=== PATIENT | female | born 1930 | race Caucasian/White ===

== ENCOUNTER 2017-07-30 20:12 | Emergency (ER) | payer MEDICARE ==
[~2017-07-30] VITALS: Ht 160 cm; Wt 51.3 kg
[~2017-07-30 20:12] MED LIST: ASCO500 PO; ASPI81CH; Aspirin EC325 MG PO; BETA.05TC TOP; BUME2 PO; CALCAVITD PO; CALCNI; CARV25 PO; CETI10 PO; CHOL10002 PO; CIPR250 PO; CLOB.05TC TOP; CLOP75 PO; CONEST.625; CONEST1.25; DICMIS50EC; DILT180; FAMO20 PO; FURO20 PO; FURO40 PO; GLUC500 PO; HYDACE5 PO; HYDHCL25 PO; HYDPAM25 PO; LEVFLO500; LEVFLO500 PO; LISI20; LISI20 PO; LORA10ER; LOSA50 PO; MELO7.5 PO; MIACALCIN; MOTION RELIEF25 MG PO; MYRBETRIQ50 MG PO; Macrobid 100 M100 MG PO; Multivitamin1 EAC1 PO; NEBI10 PO; NIFE10 PO; OMEP20ER; OXYB5 PO; POTA10T PO; PSYL5.85P PO; TELM80 PO; TOCO1000 PO; TOLT2ER; TOLT4 PO; TRIM100 PO; VIT1CAPS12 PO; [UNRECOGNIZED DRUG - REMARK]; [UNRECOGNIZED DRUG - REMARK]
[2017-07-30 21:06] LABS: BASOPHILS ABSOLUTE AUTO 0.07 K/mm3 (0.00-0.23); BASOPHILS PERCENT AUTO 1 % (0-2); EOSINOPHILS ABSOLUTE AUTO 0.31 K/mm3 (0.00-0.68); EOSINOPHILS PERCENT AUTO 3 % (0-6); Hematocrit 33.1 % (33.0-51.0); Hemoglobin 11.2 g/dL (11.5-16.0); IMMATURE GRAN ABSOLUTE AUTO 0.04 K/mm3 (0.00-0.10); IMMATURE GRAN PERCENT AUTO 0 % (0-1); LYMPHOCYTES ABSOLUTE AUTO 2.47 K/mm3 (0.84-5.20); LYMPHOCYTES PERCENT AUTO 22 % (21-46); MONOCYTES ABSOLUTE AUTO 0.96 K/mm3 (0.16-1.47); MONOCYTES PERCENT AUTO 8 % (4-13); Mean Corpuscular HGB 31.9 pg (26.0-34.0); Mean Corpuscular HGB Conc 33.8 g/dL (31.5-36.5); Mean Corpuscular Volume 94 fL (80-100); NEUTROPHILS ABSOLUTE AUTO 7.56 K/mm3 (1.96-9.15); NEUTROPHILS PERCENT AUTO 66 % (41-73); Platelet Count 339 K/mm3 (150-400); RDW Coefficient Variation 13.1 % (11.7-14.2); RDW Standard Deviation 44.9 fL (35.1-46.3); Red Blood Cell Count 3.51 M/mm3 (3.80-5.20); White Blood Cell Count 11.41 K/mm3 (4.00-11.30)
[2017-07-30 21:21] LABS: Albumin, Blood 3.1 g/dL (3.4-5.0); Albumin/Globulin Ratio 0.9 (0.8-1.8); Bilirubin, Total 0.3 mg/dL (0.1-1.0); Bun/Creatinine Ratio 21.1 (12.0-20.0); Calcium, Blood 9.2 mg/dL (8.5-10.1); Creatinine, Blood 1.23 mg/dL (0.40-1.00); Globulin, Blood 3.5 g/dL (2.2-4.0); Potassium, Blood 4.5 mmol/L (3.5-5.5); Total Protein, Blood 6.6 g/dL (6.4-8.2)
[2017-07-30 22:46] LABS: Source, Urine Clean Catch
[2017-07-30 22:51] LABS: Bilirubin, Urine Neg (Neg); Blood, Urine Neg (Neg); Glucose Qualitative, Urine Neg (Neg); Ketones, Urine Neg (Neg); Leukocyte Esterase, Urine 1+ (Neg); Nitrite, Urine Neg (Neg); Protein, Urine 1+ (Neg); Urobilinogen, Urine NORM (Normal)
[2017-07-30 23:03] LABS: Appearance, Urine Clear (Clear); Color, Urine Yellow (P-Yellow)
[2017-07-30 23:04] LABS: Amorphous Light (0-Heavy); Bacteria Few /hpf; Red Blood Cells, Urine Not Seen /hpf (0-2); Squamous Epithelial Cells Few /hpf (Few); White Blood Cells, Urine 0-2 /hpf (0-5)
[2017-07-31] MEDS ORDERED: ONDA4ODT MM (02:10)
== END 2017-07-31 02:36 | disposition home or self-care (01) ==
LOC: ER 20:12
PROVIDERS: Emergency Medicine
DX: R10.9 Unspecified abdominal pain (principal); R11.2 Nausea with vomiting, unspecified; R30.0 Dysuria; D72.829 Elevated white blood cell count, unspecified; I10 Essential (primary) hypertension; Z88.2 Allergy status to sulfonamides; Z88.8 Allergy status to other drugs, medicaments and biological substances; Z79.899 Other long term (current) drug therapy; Z79.82 Long term (current) use of aspirin; Z87.891 Personal history of nicotine dependence
CPT/HCPCS: 36415; 51798; 74176; 80053; 81001; 83690; 85025; 87077; 87086; 87186; 93005; 93010; 96361; 96374; 96376; 99284; J2405; J7030

== ENCOUNTER 2017-08-06 23:51 | Emergency (ER) | payer MEDICARE ==
[~2017-08-06] VITALS: Ht 160 cm; Wt 53.5 kg
[~2017-08-06 23:51] MED LIST changes: -ASPI81CH; +ASPI81CH PO; -CONEST.625; +CONEST.625 PO; +Metamucil Smooth1 EA PO; +ONDA4ODT MM
[2017-08-07 00:29] LABS: Source, Urine Catheter
[2017-08-07 00:31] LABS: Bilirubin, Urine Neg (Neg); Blood, Urine Neg (Neg); Glucose Qualitative, Urine Neg (Neg); Ketones, Urine Neg (Neg); Leukocyte Esterase, Urine Neg (Neg); Nitrite, Urine Neg (Neg); Protein, Urine Neg (Neg); Specific Gravity, Urine 1.015 (1.003-1.022); Urobilinogen, Urine NORM (Normal)
[2017-08-07 00:34] LABS: BASOPHILS ABSOLUTE AUTO 0.05 K/mm3 (0.00-0.23); BASOPHILS PERCENT AUTO 0 % (0-2); EOSINOPHILS ABSOLUTE AUTO 0.38 K/mm3 (0.00-0.68); EOSINOPHILS PERCENT AUTO 3 % (0-6); Hematocrit 30.4 % (33.0-51.0); Hemoglobin 10.1 g/dL (11.5-16.0); IMMATURE GRAN ABSOLUTE AUTO 0.04 K/mm3 (0.00-0.10); IMMATURE GRAN PERCENT AUTO 0 % (0-1); LYMPHOCYTES ABSOLUTE AUTO 1.72 K/mm3 (0.84-5.20); LYMPHOCYTES PERCENT AUTO 15 % (21-46); MONOCYTES ABSOLUTE AUTO 0.85 K/mm3 (0.16-1.47); MONOCYTES PERCENT AUTO 8 % (4-13); Mean Corpuscular HGB 31.7 pg (26.0-34.0); Mean Corpuscular HGB Conc 33.2 g/dL (31.5-36.5); Mean Corpuscular Volume 95 fL (80-100); Mean Platelet Volume 9.8 fL (9.1-12.4); NEUTROPHILS ABSOLUTE AUTO 8.11 K/mm3 (1.96-9.15); NEUTROPHILS PERCENT AUTO 73 % (41-73); Platelet Count 268 K/mm3 (150-400); RDW Coefficient Variation 12.9 % (11.7-14.2); RDW Standard Deviation 44.9 fL (35.1-46.3); Red Blood Cell Count 3.19 M/mm3 (3.80-5.20); White Blood Cell Count 11.15 K/mm3 (4.00-11.30)
[2017-08-07 00:36] LABS: Appearance, Urine Clear (Clear); Color, Urine Yellow (P-Yellow)
[2017-08-07 00:52] LABS: Albumin, Blood 2.9 g/dL (3.4-5.0); Albumin/Globulin Ratio 0.9 (0.8-1.8); Bilirubin, Total 0.3 mg/dL (0.1-1.0); Bun/Creatinine Ratio 20.2 (12.0-20.0); Calcium, Blood 8.7 mg/dL (8.5-10.1); Creatinine, Blood 1.09 mg/dL (0.40-1.00); Globulin, Blood 3.1 g/dL (2.2-4.0)
[2017-08-07] MEDS ORDERED: Flomax0.4 MG PO (02:20)
== END 2017-08-07 03:00 | disposition home or self-care (01) ==
LOC: ER 23:51
PROVIDERS: Emergency Medicine
DX: R33.9 Retention of urine, unspecified (principal); R10.11 Right upper quadrant pain; Z88.2 Allergy status to sulfonamides; Z88.8 Allergy status to other drugs, medicaments and biological substances; Z79.899 Other long term (current) drug therapy; Z79.82 Long term (current) use of aspirin; I10 Essential (primary) hypertension; Z87.891 Personal history of nicotine dependence
CPT/HCPCS: 36415; 51701; 76705; 80053; 81003; 83605; 83690; 83735; 85025; 99284

== ENCOUNTER 2017-08-09 16:39 | Emergency (ER) | payer MEDICARE ==
[~2017-08-09] VITALS: Ht 160 cm; Wt 51.3 kg
[~2017-08-09 16:39] MED LIST changes: +Flomax0.4 MG PO
[2017-08-09 19:01] LABS: Source, Urine Catheter
[2017-08-09 19:04] LABS: Appearance, Urine Clear (Clear); Bilirubin, Urine Neg (Neg); Blood, Urine Neg (Neg); Color, Urine Yellow (P-Yellow); Glucose Qualitative, Urine Neg (Neg); Ketones, Urine Neg (Neg); Leukocyte Esterase, Urine Neg (Neg); Nitrite, Urine Neg (Neg); Protein, Urine Neg (Neg); Urobilinogen, Urine NORM (Normal)
== END 2017-08-09 19:49 | disposition home or self-care (01) ==
LOC: ER 16:39
PROVIDERS: Emergency Medicine
DX: R33.9 Retention of urine, unspecified (principal); I10 Essential (primary) hypertension; F03.90 Unspecified dementia, unspecified severity, without behavioral disturbance, psychotic disturbance, mood disturbance, and anxiety; Z88.2 Allergy status to sulfonamides; Z88.8 Allergy status to other drugs, medicaments and biological substances; Z79.899 Other long term (current) drug therapy; Z79.82 Long term (current) use of aspirin; Z87.891 Personal history of nicotine dependence
CPT/HCPCS: 51702; 51798; 81003; 99283

== ENCOUNTER → 2018-03-06 | Outpatient (CLI) | payer MEDICARE ==
[~2018-03-06] MED LIST changes: -LISI20
== END | disposition home or self-care (01) ==
LOC: LAB SHORT 12:23 → LAB EV 12:23
DX: E86.0 Dehydration (principal)
CPT/HCPCS: 87086

== ENCOUNTER → 2018-03-06 | Outpatient (CLI) | payer MEDICARE ==
[2018-03-06 11:16] LABS: BASOPHILS ABSOLUTE AUTO 0.04 K/mm3 (0.00-0.23); BASOPHILS PERCENT AUTO 0 % (0-2); EOSINOPHILS ABSOLUTE AUTO 0.02 K/mm3 (0.00-0.68); EOSINOPHILS PERCENT AUTO 0 % (0-6); Hematocrit 37.2 % (33.0-51.0); Hemoglobin 12.5 g/dL (11.5-16.0); IMMATURE GRAN ABSOLUTE AUTO 0.05 K/mm3 (0.00-0.10); IMMATURE GRAN PERCENT AUTO 0 % (0-1); LYMPHOCYTES ABSOLUTE AUTO 1.34 K/mm3 (0.84-5.20); LYMPHOCYTES PERCENT AUTO 9 % (21-46); MONOCYTES ABSOLUTE AUTO 0.35 K/mm3 (0.16-1.47); MONOCYTES PERCENT AUTO 2 % (4-13); Mean Corpuscular HGB 32.1 pg (26.0-34.0); Mean Corpuscular HGB Conc 33.6 g/dL (31.5-36.5); Mean Corpuscular Volume 95 fL (80-100); Mean Platelet Volume 10.9 fL (9.1-12.4); NEUTROPHILS PERCENT AUTO 88 % (41-73); Platelet Count 347 K/mm3 (150-400); RDW Standard Deviation 44.8 fL (35.1-46.3)
[2018-03-06 11:28] LABS: Albumin, Blood 3.6 g/dL (3.4-5.0); Bilirubin, Total 0.4 mg/dL (0.1-1.0); Bun/Creatinine Ratio 22.7 (12.0-20.0); Calcium, Blood 10.4 mg/dL (8.5-10.1); Creatinine, Blood 1.28 mg/dL (0.40-1.00); Globulin, Blood 3.7 g/dL (2.2-4.0); Potassium, Blood 4.7 mmol/L (3.5-5.5); Total Protein, Blood 7.3 g/dL (6.4-8.2)
== END | disposition home or self-care (01) ==
LOC: LAB SHORT 11:12 → LAB EV 11:12
PROVIDERS: General Practice
DX: R11.10 Vomiting, unspecified (principal)
CPT/HCPCS: 80053; 83690; 85025

== ENCOUNTER 2018-04-19 14:01 | Inpatient (IN) | payer MEDICARE ==
[~2018-04-19] VITALS: Ht 162.6 cm; Wt 58.3 kg
[2018-04-19 15:12] LABS: Source, Urine Catheter
[2018-04-19 15:22] LABS: Bilirubin, Urine Neg (Neg); Blood, Urine Neg (Neg); Glucose Qualitative, Urine Neg (Neg); Ketones, Urine Neg (Neg); Leukocyte Esterase, Urine Neg (Neg); Nitrite, Urine Neg (Neg); Protein, Urine Neg (Neg); Specific Gravity, Urine 1.015 (1.003-1.022); Urobilinogen, Urine NORM (Normal); pH, Urine 6.5 (5.0-8.0)
[2018-04-19 15:33] LABS: Appearance, Urine Clear (Clear); Color, Urine Yellow (P-Yellow)
[2018-04-19] MEDS ORDERED: MIACALCIN (17:40)
--- NOTE | 2018-04-19 18:44 | NUR ---
PT ADMITTED THIS SYLVAIN. ADMIT DONE EXCEPT FOR HISTORY. PT SOMEWHAT ANXIOUS. DEMENTIA. DAUGHTER HAS BEEN IN ROOM UNTIL RECENTLY. NPO FOR SBO. LUNGS CLEAR, RESP EASY, UNLABORED. ON R.A. H/R REG, NO MURMER NOTED. BT X4 LAST BM REPORTED THIS AM. 100 CC EMESIS OUT AT BEDSIDE. BED ALARM ON FOR SAFETY. BED IN LOW POSITION, CALL LITE IN REACH,
--- NOTE | 2018-04-20 05:09 | NUR ---
SHIFT SUMMARY: PT IS A&O, BUT BECOMES CONFUSED WITH DETAIL. PT ALSO BECOMES VERY ANXIOUS AND APOLOGETIC, BUT IS EASY TO DE-ESCALATE WITH THERAPEUTIC COMMUNICATION. BED ALARM ON PT IS IMPULSIVE AND FORGETFUL. BLE 2+ EDEMA, PER PT'S DAUGHTER, IS BASELINE. RESP E/U ON ROOM AIR. LS CLEAR. INGUINAL HERNIA TO ABD. DENIES N/V/D. MILD DISTENTION, FIRM ABD, BS NORMO X 4. 1 PER ASSIST TO BATHROOM. NPO PER ORDERS. NO OTHER CHANGES TO REPORT, WILL CONT TO MONITOR AND PROVIDE CARE UNTIL PRESUMED BY ONCOMING RN
[2018-04-20 05:41] LABS: Bun/Creatinine Ratio 25.9 (12.0-20.0); Calcium, Blood 8.5 mg/dL (8.5-10.1); Creatinine, Blood 1.16 mg/dL (0.40-1.00); Potassium, Blood 4.2 mmol/L (3.5-5.5)
--- NOTE | 2018-04-20 10:52 | NUR ---
PATIENT DID NOT EAT BREAKFAST THIS SHIFT DUE TO BEING NPO AT THIS TIME.
--- NOTE | 2018-04-20 13:27 | NUR ---
PATIENT DID NOT EAT LUNCH THIS SHIFT DUE TO BEING NPO AT THIS TIME.
--- NOTE | 2018-04-20 16:38 | NUR ---
SHIFT SUMMARY NO ACUTE CHANGES. DR. FONG CONSULTED ON PATIENT. PATIENT PASSING SMALL STOOLS. ORDERS GIVEN TO ADVANCE DIET TO CLEAR LIQUID. FOUR NURSES ATTEMPTED TO RESTART IV ON PATIENT WITHOUT SUCCESS. ORDERS FOR NO IV ACCESS GIVEN. PATIENT TOLERATING CLEAR LIQUID WELL SO FAR. DENIES PAIN OR NAUSEA. CALL LIGHT IN REACH, WILL CONTINUE TO MONITOR.
--- NOTE | 2018-04-21 06:30 | NUR ---
SHIFT SUMMARY: PT CONT TO TOLERATE CLEAR LIQUIDS DIET. DENIES N/V/D. NO IV ACCESS PER ORDERS. PRN MIRALAX ADMINISTERED 2X / DAY. NO OTHER CHANGES TO REPORT. WILL CONT TO MONITOR AND PROVIDE CARE UNTIL PRESUMED BY ONCOMING RN.
--- NOTE | 2018-04-21 19:06 | NUR ---
PT DIET ADVANCED TO SOFT TODAY, TOLERATING WELL. PT HAD SEVERAL VERY SMALL, HARD, ROUND BM'S TODAY. JUST A PEBBLE OR TWO AT A TIME. NO ACUTE CHANGES NOTED. WILL CONTINUE TO MONITOR AND REPORT TO ONCOMING RN
[2018-04-22 05:23] LABS: Hemoglobin 10.7 g/dL (11.5-16.0); Mean Corpuscular HGB 30.7 pg (26.0-34.0); Mean Corpuscular HGB Conc 31.5 g/dL (31.5-36.5); Mean Platelet Volume 10.6 fL (9.1-12.4); Platelet Count 271 K/mm3 (150-400); RDW Coefficient Variation 12.8 % (11.7-14.2); RDW Standard Deviation 45.8 fL (35.1-46.3); Red Blood Cell Count 3.48 M/mm3 (3.80-5.20); White Blood Cell Count 7.07 K/mm3 (4.00-11.30)
[2018-04-22 05:24] LABS: Mean Corpuscular Volume 98 fL (80-100)
[2018-04-22 06:11] LABS: Bun/Creatinine Ratio 17.9 (12.0-20.0); Calcium, Blood 8.8 mg/dL (8.5-10.1); Creatinine, Blood 1.12 mg/dL (0.40-1.00)
--- NOTE | 2018-04-22 07:11 | NUR ---
SHIFT SUMMARY: PT CONT TO TOLERATE CURRENT SOFT BIZE DIET. DENIES N/V. SMALL HARD BM 2X. NO IV ACCESS. MIRALAX BID PER SCHEDULE ORDERS. NO OTHER CHANGES TO REPORT. WILL CONT TO MONITOR AND PROVIDE CARE UNTIL PRESUMED BY ONCOMING RN.
--- NOTE | 2018-04-22 16:51 | NUR ---
DISCHARGE DISCHARGE INSTRUCTIONS, MEDICATION LIST AND FOLLOW UP APPOINTMENTS REVIEWED WITH PT AND DAUGHTER. QUESTIONS/CONCERNS ANSWERED. BOTH VERBALLY INDICATED UNDERSTANDING OF ALL INSTRUCTIONS RECEIVED. PT ESCORTED OUT VIA W/C BY MERYL
== END 2018-04-22 16:49 | disposition home or self-care (01) | DRG 389 ==
LOC: ER 14:01 → MEDS 16:05
PROVIDERS: Emergency Medicine; ADMIT Internal Medicine
DX: K56.51 Intestinal adhesions [bands], with partial obstruction (principal); J84.9 Interstitial pulmonary disease, unspecified; R65.10 Systemic inflammatory response syndrome (SIRS) of non-infectious origin without acute organ dysfunction; M19.90 Unspecified osteoarthritis, unspecified site; Z96.641 Presence of right artificial hip joint; Z87.891 Personal history of nicotine dependence; Z79.82 Long term (current) use of aspirin; Z87.440 Personal history of urinary (tract) infections; N18.3 Chronic kidney disease, stage 3 (moderate); I12.9 Hypertensive chronic kidney disease with stage 1 through stage 4 chronic kidney disease, or unspecified chronic kidney disease; F03.90 Unspecified dementia, unspecified severity, without behavioral disturbance, psychotic disturbance, mood disturbance, and anxiety; K40.90 Unilateral inguinal hernia, without obstruction or gangrene, not specified as recurrent
CPT/HCPCS: 36415; 74176; 80048; 81003; 85027; 97161; 97530; 99285-25; J1650; J7120; P9612

== ENCOUNTER → 2018-04-19 | Outpatient (CLI) | payer MEDICARE ==
[2018-04-19 12:47] LABS: BASOPHILS ABSOLUTE AUTO 0.03 K/mm3 (0.00-0.23); BASOPHILS PERCENT AUTO 0 % (0-2); EOSINOPHILS ABSOLUTE AUTO 0.01 K/mm3 (0.00-0.68); EOSINOPHILS PERCENT AUTO 0 % (0-6); Hematocrit 34.4 % (33.0-51.0); Hemoglobin 11.1 g/dL (11.5-16.0); IMMATURE GRAN ABSOLUTE AUTO 0.05 K/mm3 (0.00-0.10); IMMATURE GRAN PERCENT AUTO 0 % (0-1); LYMPHOCYTES PERCENT AUTO 13 % (21-46); MONOCYTES ABSOLUTE AUTO 0.43 K/mm3 (0.16-1.47); MONOCYTES PERCENT AUTO 4 % (4-13); Mean Corpuscular HGB 30.2 pg (26.0-34.0); Mean Corpuscular HGB Conc 32.3 g/dL (31.5-36.5); Mean Corpuscular Volume 94 fL (80-100); Mean Platelet Volume 11.1 fL (9.1-12.4); NEUTROPHILS ABSOLUTE AUTO 10.07 K/mm3 (1.96-9.15); NEUTROPHILS PERCENT AUTO 83 % (41-73); Platelet Count 330 K/mm3 (150-400); RDW Coefficient Variation 13.2 % (11.7-14.2); Red Blood Cell Count 3.67 M/mm3 (3.80-5.20); White Blood Cell Count 12.19 K/mm3 (4.00-11.30)
[2018-04-19 13:00] LABS: Albumin, Blood 3.2 g/dL (3.4-5.0); Albumin/Globulin Ratio 0.9 (0.8-1.8); Bilirubin, Total 0.4 mg/dL (0.1-1.0); Bun/Creatinine Ratio 21.4 (12.0-20.0); Calcium, Blood 9.1 mg/dL (8.5-10.1); Creatinine, Blood 1.54 mg/dL (0.40-1.00); Globulin, Blood 3.5 g/dL (2.2-4.0); Potassium, Blood 4.3 mmol/L (3.5-5.5); Total Protein, Blood 6.7 g/dL (6.4-8.2)
== END ==
LOC: LAB EV 12:44 → LAB SHORT 12:44
PROVIDERS: General Practice
DX: R10.30 Lower abdominal pain, unspecified (principal)
CPT/HCPCS: 80053; 83690; 85025